=== PATIENT | male | born 1960 | race Caucasian/White ===

== ENCOUNTER 2018-02-04 22:54 | Emergency (ER) | payer OTHER ==
[2018-02-04] MEDS: SODIUM CHLORIDE 0.9% 1L IRRIG IRR (23:59)
[2018-02-05] MEDS: HYDROCODONE/APAP (5/325) TAB PO (00:18)
[2018-02-05] MEDS: ONDANSETRON (ODT) 4 MG TAB ODT (00:18)
[2018-02-05] MEDS: LIDOCAINE 1% (MDV) 20 ML INJ SC (00:26)
== END 2018-02-05 03:08 | disposition home or self-care (01) ==
LOC: FTE 22:54
DX: S01.01XA Laceration without foreign body of scalp, initial encounter (principal); S62.617A Displaced fracture of proximal phalanx of left little finger, initial encounter for closed fracture; J45.909 Unspecified asthma, uncomplicated; F17.210 Nicotine dependence, cigarettes, uncomplicated; Y04.0XXA Assault by unarmed brawl or fight, initial encounter
CPT/HCPCS: 12004; 70450; 72125; 73030; 73030-RT; 73080-RT; 73130-LT; 99285-25

== ENCOUNTER 2018-02-11 15:18 | Emergency (ER) | payer OTHER | END 2018-02-11 17:46 | disposition home or self-care (01) | LOC: FTE 15:18 | DX: Z47.89 Encounter for other orthopedic aftercare (principal); J45.909 Unspecified asthma, uncomplicated | CPT/HCPCS: 29125; 99282-25 ==

== ENCOUNTER 2018-03-05 07:30 | Day surgery (SDC) | payer OTHER ==
[2018-03-05] MEDS: LACTATED RINGER'S 1,000 ML IV (08:47)
[2018-03-05] MEDS ORDERED: MIDAZOLAM 1 MG/ML 2 ML INJ (09:16)
[2018-03-05] MEDS ORDERED: METOCLOPRAMIDE 10 MG INJ (09:16)
[2018-03-05] MEDS ORDERED: CEFAZOLIN 1 GM INJ (09:17)
[2018-03-05] MEDS ORDERED: ACETAMINOPHEN 1000MG/100ML IV 100 ML (09:17)
[2018-03-05] MEDS ORDERED: PROPOFOL 20 ML (09:17)
[2018-03-05] MEDS ORDERED: FENTAnyl 50 MCG/ML VIAL ×2 (09:20→10:00)
[2018-03-05] MEDS ORDERED: LIDOCAINE 1% (MPF) 30 ML INJ (09:25)
[2018-03-05] MEDS ORDERED: BUPIVACAINE 0.5% (SDV) 30 ML INJ (09:25)
[2018-03-05] MEDS ORDERED: EPHEDrine SULFATE 50 MG/5 ML SYG (09:52)
[2018-03-05] MEDS ORDERED: OXYCODONE/ACETAMINOPHEN (5/325) TAB PO (10:00)
[2018-03-05] MEDS ORDERED: DIPHENHYDRAMINE 50 MG INJ IV (10:00)
[2018-03-05] MEDS ORDERED: ALBUTEROL 0.083% (NEB) 2.5 MG/3 ML AMP HHN (10:00)
[2018-03-05] MEDS ORDERED: HYDROmorphONE 1 MG/5 ML IV SYRINGE IV ×2 (10:00)
[2018-03-05] MEDS ORDERED: ONDANSETRON 4 MG INJ IV (10:00)
[2018-03-05] MEDS ORDERED: ROPIVACAINE 0.2% 20 ML VIAL (10:44)
[2018-03-05] MEDS: MEPERIDINE 25 MG INJ IV (11:20)
[2018-03-05] MEDS: HYDROmorphONE 1 MG/5 ML IV SYRINGE IV (11:22)
[2018-03-05] MEDS: OXYCODONE/ACETAMINOPHEN (5/325) TAB PO (11:51)
== END 2018-03-05 13:17 | disposition home or self-care (01) ==
LOC: SDS 07:30
DX: S62.617D Displaced fracture of proximal phalanx of left little finger, subsequent encounter for fracture with routine healing (principal); X58.XXXD Exposure to other specified factors, subsequent encounter
CPT/HCPCS: 26746; 73140

== ENCOUNTER 2018-07-13 15:26 | Emergency (ER) | payer OTHER ==
[2018-07-13] MEDS: IBUPROFEN 600 MG TAB PO (18:05)
== END 2018-07-13 20:13 | disposition home or self-care (01) ==
LOC: FTE 15:26
DX: R07.81 Pleurodynia (principal); R40.2412 Glasgow coma scale score 13-15, at arrival to emergency department; J45.909 Unspecified asthma, uncomplicated; Z87.891 Personal history of nicotine dependence
CPT/HCPCS: 71100; 99283-25

== ENCOUNTER 2018-12-02 10:27 | Emergency (ER) | payer OTHER | END 2018-12-02 11:33 | disposition home or self-care (01) | LOC: FTE 10:27 | DX: M62.838 Other muscle spasm (principal); J44.9 Chronic obstructive pulmonary disease, unspecified; F17.210 Nicotine dependence, cigarettes, uncomplicated | CPT/HCPCS: 93005; 99283-25 ==

== ENCOUNTER 2018-12-04 15:09 | Emergency (ER) | payer OTHER | END 2018-12-04 19:23 | disposition home or self-care (01) | LOC: FTE 19:23 | DX: M62.838 Other muscle spasm (principal); R21 Rash and other nonspecific skin eruption; J44.9 Chronic obstructive pulmonary disease, unspecified; R51 Headache; Z87.891 Personal history of nicotine dependence | CPT/HCPCS: 70450; 72125; 99284-25 ==